=== PATIENT | male | born 1995 | race Caucasian/White ===

== ENCOUNTER 2017-08-20 22:09 | Emergency (ER) | payer SELFPAY ==
[2017-08-20 22:35] LABS: Glucose,Whole Blood 102 mg/dL (75-99)
[2017-08-20] MEDS ORDERED: DIPH,PERTUS(ACELL)TETVAC-LF 0.5 ML VIAL IM ONE (22:37)
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
[2017-08-20] MEDS ORDERED: SODIUM CHLORIDE 0.9% 1,000 ML IV ONE (22:46)
[2017-08-20 22:53] LABS: Basophils % (A) 0 %; Eosinophils # (A) 0.2 k/uL (0-0.7); Eosinophils % (A) 2 %; HCT 40.9 % (39.0-53.0); HGB 13.8 gm/dL (13.0-17.5); Lymphocytes % (A) 25 %; MCH 27.8 pg (25.0-35.0); MCHC 33.7 g/dL (31.0-37.0); MCV 82.6 fL (80.0-100.0); Mean Platelet Volume 6.9; Monocytes # (A) 0.3 k/uL (0-1.0); Monocytes % (A) 4 %; Neutrophils # (A) 5.3 k/uL (1.3-7.7); Neutrophils % (A) 66 %; Platelet Count 307 k/uL (150-450); RBC 4.96 m/uL (4.30-5.90); RDW 12.9 % (11.5-15.5)
[2017-08-20 23:02] LABS: ALT 37 U/L (21-72); AST 29 U/L (17-59); Albumin 4.8 g/dL (3.5-5.0); Alkaline Phosphatase 57 U/L (38-126); Blood Urea Nitrogen 15 mg/dL (9-20); Calcium 9.9 mg/dL (8.4-10.2); Carbon Dioxide 21 mmol/L (22-30); Glucose 113 mg/dL (74-99); Total Bilirubin 0.2 mg/dL (0.2-1.3); Total Protein 7.7 g/dL (6.3-8.2)
[2017-08-20 23:03] LABS: INR 1.1 (<1.2); Partial Thromboplastin Time 23.2 sec (22.0-30.0); Prothrombin Time 10.4 sec (9.0-12.0)
--- NOTE | 2017-08-20 23:05 | XR ---
EXAMINATION TYPE: XR knee 4V RT DATE OF EXAM: 08/20/2017 COMPARISON: NONE HISTORY: Knee pain TECHNIQUE: 4 views FINDINGS: I see no fracture nor dislocation. Joint spaces are normal. There is no sign of knee joint effusion. There are small densities anterior and inferior to the patella that could be foreign bodies . IMPRESSION: No fracture. Possible soft tissue foreign bodies adjacent to the patella.
--- NOTE | 2017-08-20 23:06 | XR ---
EXAMINATION TYPE: XR chest 1V portable DATE OF EXAM: 08/20/2017 COMPARISON: 01/10/2013 HISTORY: Pain TECHNIQUE: Single frontal view of the chest is obtained. FINDINGS: Heart and mediastinum are normal. Lungs are clear. Diaphragm is normal. There are chest le ads. There is no sign of pleural effusion or pneumothorax. IMPRESSION: Normal chest. No change.
[2017-08-20 23:12] LABS: Anion Gap 19 mmol/L; Chloride 108 mmol/L (98-107); Potassium 3.9 mmol/L (3.5-5.1); Sodium 148 mmol/L (137-145)
[2017-08-20 23:22] LABS: Alcohol 123 mg/dL
[2017-08-20 23:25] LABS: Appearance,Urine Clear (Clear); Bilirubin,Urine Negative (Negative); Blood,Urine Small (Negative); Color,Urine Yellow; Glucose,Urine (UA) Negative (Negative); Ketones,Urine Negative (Negative); Leukocyte Esterase,Urine Negative (Negative); Mucus,Urine Rare /hpf; Nitrite,Urine Negative (Negative); PH, Urine 5.5 (5.0-8.0); Protein,Urine Negative (Negative); RBC,Urine 4 /hpf (0-5); Specific Gravity,Urine 1.017 (1.001-1.035); Urobilinogen,Urine <2.0 mg/dL (<2.0); WBC,Urine 1 /hpf (0-5)
[2017-08-20] MEDS ORDERED: IBUPROFEN 400 MG TAB PO STA (23:28)
[2017-08-20] MEDS ORDERED: HYDROcodone/APAP 5-325MG 1 EACH TAB PO STA (23:28)
[2017-08-20] MEDS ORDERED: LIDOCAINE VISCOUS 2% 15 ML CUP MUCOUS MEM STA (23:29)
[2017-08-21 00:08] LABS: Amphetamine Screen,Urine Not Detected (NotDetected); Barbiturate Screen,Urine Not Detected (NotDetected); Benzodiazepines Screen,Urine Not Detected (NotDetected); Cocaine Screen,Urine Not Detected (NotDetected); Methadone Screen, Urine Not Detected (NotDetected); Opiate Screen,Urine Not Detected (NotDetected); Oxycodone Screen, Urine Not Detected (NotDetected); Phencyclidine Screen,Urine Not Detected (NotDetected); Tricyclic Antidepressant,Urine Not Detected (NotDetected); Urn Cannabinoid Scrn Not Detected (NotDetected)
[2017-08-21 00:40] VITALS: BP 153/69; PULSE 109; RESP 16; TEMP 99.1
== END 2017-08-21 00:26 | disposition home or self-care (01) ==
LOC: EC 22:09
DX: S81.011A Laceration without foreign body, right knee, initial encounter (principal); R00.0 Tachycardia, unspecified; Z23 Encounter for immunization; V86.06XA Driver of dirt bike or motor/cross bike injured in traffic accident, initial encounter; Y92.411 Interstate highway as the place of occurrence of the external cause
CPT/HCPCS: 36415; 71045; 80053; 80306; 80320; 81001; 83605; 84484; 85025; 85610; 85730; 86850; 86900; 86901; 90471; 90715; 93005; 96360; 99284

== ENCOUNTER 2019-10-19 21:02 | Emergency (ER) | payer OTHER ==
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
[2019-10-19] MEDS ORDERED: SODIUM CHLORIDE 0.9% 1,000 ML IV STA (21:11)
[2019-10-19 21:24] LABS: Glucose,Whole Blood 135 mg/dL (75-99)
[2019-10-19 21:31] LABS: Basophils % (A) 0 %; Eosinophils # (A) 0.1 k/uL (0-0.7); Eosinophils % (A) 2 %; HCT 40.7 % (39.0-53.0); HGB 13.5 gm/dL (13.0-17.5); Lymphocytes % (A) 39 %; MCH 27.7 pg (25.0-35.0); MCHC 33.2 g/dL (31.0-37.0); MCV 83.4 fL (80.0-100.0); Mean Platelet Volume 7.3; Monocytes # (A) 0.3 k/uL (0-1.0); Monocytes % (A) 4 %; Neutrophils % (A) 52 %; Platelet Count 248 k/uL (150-450); RBC 4.88 m/uL (4.30-5.90); RDW 12.4 % (11.5-15.5); WBC 7.7 k/uL (3.8-10.6)
--- NOTE | 2019-10-19 21:44 | XR ---
EXAMINATION TYPE: XR chest 1V portable DATE OF EXAM: 10/19/2019 COMPARISON: 08/20/2017 HISTORY: Chest pain trauma TECHNIQUE: FINDINGS: Heart and mediastinum are normal. Lungs are clear. There is no sign of pleural effusion or pneumothorax. Bony thorax appears intact. IMPRESSION: Normal chest. No change.
--- NOTE | 2019-10-19 21:45 | XR ---
EXAMINATION TYPE: XR pelvis AP view DATE OF EXAM: 10/19/2019 COMPARISON: NONE HISTORY: Pain TECHNIQUE: Single view FINDINGS: Pelvic ring is intact. Proximal femurs and hip joints are intact. Sacroiliac joints appear normal. IMPRESSION: Normal exam. No pelvic fracture seen.
--- NOTE | 2019-10-19 21:46 | XR ---
EXAMINATION TYPE: XR femur LT DATE OF EXAM: 10/19/2019 COMPARISON: NONE HISTORY: Pain TECHNIQUE: 4 views FINDINGS: I see no fracture nor dislocation. Knee joint and hip joint appear intact. Soft tissues pinky ear normal. There is no sign of knee joint effusion. IMPRESSION: Negative left femur exam.
[2019-10-19 21:47] LABS: Prothrombin Time 10.8 sec (9.0-12.0)
--- NOTE | 2019-10-19 21:47 | XR ---
EXAMINATION TYPE: XR humerus LT DATE OF EXAM: 10/19/2019 COMPARISON: NONE HISTORY: Pain TECHNIQUE: 4 views FINDINGS: Shoulder joint and elbow joint appear intact. I see no fracture nor dislocation. Soft tissu es appear normal. IMPRESSION: Negative left humerus exam.
--- NOTE | 2019-10-19 21:48 | XR ---
EXAMINATION TYPE: XR tibia fibula LT DATE OF EXAM: 10/19/2019 COMPARISON: NONE HISTORY: Pain TECHNIQUE: 4 views FINDINGS: Knee joint and ankle joint appear intact. I see no fracture nor dislocation. There is no si gn of knee joint effusion. IMPRESSION: Negative left tibia and fibula exam.
--- NOTE | 2019-10-19 21:49 | XR ---
EXAMINATION TYPE: XR elbow complete LT DATE OF EXAM: 10/19/2019 COMPARISON: NONE HISTORY: Pain TECHNIQUE: 3 views FINDINGS: Elbow joint spaces appear normal. I see no fracture nor dislocation. There is no sign of el bow joint effusion. IMPRESSION: Negative left elbow exam.
[2019-10-19 21:53] LABS: ALT 33 U/L (4-49); AST 31 U/L (17-59); African American GFR (CKD) >90 (>60 ml/min/1.73 sqM); Albumin 4.7 g/dL (3.5-5.0); Alcohol <10 mg/dL; Alkaline Phosphatase 56 U/L (38-126); Amylase 54 U/L (30-110); Anion Gap 11 mmol/L; Blood Urea Nitrogen 15 mg/dL (9-20); Calcium 9.8 mg/dL (8.4-10.2); Carbon Dioxide 23 mmol/L (22-30); Chloride 105 mmol/L (98-107); Creatine Kinase 186 U/L (55-170); Glucose 135 mg/dL (74-99); Non-African American GFR(CKD) >90 (>60 ml/min/1.73 sqM); Potassium 3.5 mmol/L (3.5-5.1); Sodium 139 mmol/L (137-145); Total Bilirubin 0.4 mg/dL (0.2-1.3); Total Protein 7.2 g/dL (6.3-8.2)
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
[2019-10-19 22:01] LABS: Partial Thromboplastin Time 21.3 sec (22.0-30.0)
[2019-10-19 22:06] LABS: Creatine Kinase MB 1.4 ng/mL (0.0-2.4); Troponin I <0.012 ng/mL (0.000-0.034)
[2019-10-19] MEDS ORDERED: KETOROLAC 30 MG/ML 1 ML VIAL IVP STA (22:21)
[2019-10-19] MEDS ORDERED: DIPH,PERTUS(ACELL)TETVAC-LF 0.5 ML VIAL IM ONE (22:21)
[2019-10-19 22:22] VITALS: RESP 16
[2019-10-19 22:43] VITALS: BP 138/93; PULSE 84; TEMP 98.3
== END 2019-10-19 22:43 | disposition home or self-care (01) ==
LOC: EC 21:02
DX: S40.811A Abrasion of right upper arm, initial encounter (principal); S80.812A Abrasion, left lower leg, initial encounter; F41.9 Anxiety disorder, unspecified; V86.56XA Driver of dirt bike or motor/cross bike injured in nontraffic accident, initial encounter; Y92.410 Unspecified street and highway as the place of occurrence of the external cause; Y93.55 Activity, bike riding
CPT/HCPCS: 36415; 86900; 86901; 80053; 82150; 82550; 82553; 83605; 83690; 84484; 85025; 85610; 85730; 86850; 80320; 72170; 73552; 73060; 73080; 73590; 71045; 72125; 70450; 71260; 74177; 99285; 96374; 96361; J1885; Q9967; 99284